=== PATIENT | female | born 1945 | race Native Hawaiian/Other Pacific Islander ===

== ENCOUNTER 2024-06-26 15:06 | Emergency (ER) | payer MEDICARE, OTHER ==
[~2024-06-26] VITALS: Ht 160 cm; Wt 56.7 kg
[2024-06-26] MEDS ORDERED: LOSA25TA27 PO (15:46)
[2024-06-26] MEDS ORDERED: CEFD300C3 PO (15:46)
[2024-06-26] MEDS ORDERED: ALLO100T56 PO (15:46)
[2024-06-26] MEDS ORDERED: ASPI81TA31 PO (15:46)
[2024-06-26] MEDS ORDERED: LEVO75TA7 PO (15:46)
[2024-06-26] MEDS ORDERED: SEVE800T8 PO (15:46)
[2024-06-26] MEDS ORDERED: NIFE-60 PO (15:46)
[2024-06-26 16:39] VITALS: BP 196/83; O2SAT 98
== END 2024-06-26 16:48 | disposition home or self-care (01) ==
LOC: ER 15:06
DX: S00.83XA Contusion of other part of head, initial encounter (principal); S80.211A Abrasion, right knee, initial encounter; R51.9 Headache, unspecified; I12.0 Hypertensive chronic kidney disease with stage 5 chronic kidney disease or end stage renal disease; N18.6 End stage renal disease; Z79.82 Long term (current) use of aspirin; Z79.899 Other long term (current) drug therapy; Z88.0 Allergy status to penicillin; Z88.1 Allergy status to other antibiotic agents; W18.39XA Other fall on same level, initial encounter; Y93.89 Activity, other specified; Y92.89 Other specified places as the place of occurrence of the external cause; Y99.8 Other external cause status
CPT/HCPCS: 70450; 72125; A4606; A4663